=== PATIENT | female | born 1945 | race African-American/Black ===

== ENCOUNTER 2016-06-28 19:00 | Inpatient (IN) | payer MEDICARE ==
[~2016-06-28] VITALS: Ht 172.7 cm; Wt 101.0 kg
[2016-06-28] MEDS ORDERED: TIZA4CAP3 PO (19:23)
[2016-06-28] MEDS ORDERED: ZOFR20TA PO (19:23)
[2016-06-28] MEDS ORDERED: SIMV20TA2 PO (19:23)
[2016-06-28] MEDS ORDERED: PROA1AER INH (19:23)
[2016-06-28] MEDS ORDERED: METR500T10 PO (19:23)
[2016-06-28] MEDS ORDERED: FLUT1LOT (19:23)
[2016-06-28] MEDS ORDERED: CLOTRIMAZOLE ANTI12 TOP (19:23)
[2016-06-28] MEDS ORDERED: IPRASOL4 NEB (19:23)
[2016-06-28] MEDS ORDERED: MONT10TA2 PO (19:23)
[2016-06-28] MEDS ORDERED: SMZ-800T PO (19:23)
[2016-06-28] MEDS ORDERED: LOSA50TA21 PO (19:23)
[2016-06-28] MEDS ORDERED: METOCLOPRAMIDE INJ 10MG/2ML VIAL (J2765) IV ONE (19:45)
[2016-06-28] MEDS ORDERED: NS 1,000 ML IV ONE (19:45)
[2016-06-28] MEDS: MORPHINE 4 MG/ML 1ML SYRINGE IV PRN ×2 (20:00→20:55)
[2016-06-28 20:20] LABS: BASO % 0.4 % (0.0-1.0); EOS # 0.2 K/mm3 (0.0-0.50); EOS % 3.5 % (0.0-3.0); LARGE UNSTAINED CELL # 0.2 K/mm3 (0.0-0.4); LARGE UNSTAINED CELL % 3.9 % (0.0-4.0); LYMPH # 2.4 K/mm3 (1.5-4.5); LYMPH % 33.8 % (24.0-44.0); MEAN CORPUSCULAR HEMOGLOBIN 26.2 pg (27.0-33.0); MEAN CORPUSCULAR HGB CONC 30.5 g/dl (32.0-36.5); MEAN CORPUSCULAR VOLUME 85.9 fl (80.0-96.0); MONO # 0.3 K/mm3 (0.0-0.8); MONO % 5.1 % (0.0-5.0); NEUTROPHILS # 3.3 K/mm3 (1.8-7.7); NEUTROPHILS % 53.3 % (36.0-66.0); PLATELET COUNT, AUTOMATED 194 k/mm3 (150-450); RED CELL DISTRIBUTION WIDTH 13.3 % (11.5-14.5); WHITE BLOOD COUNT 6.3 K/mm3 (4.0-10.0)
[2016-06-28 20:27] LABS: INR 1.06
[2016-06-28 20:51] LABS: ALBUMIN 3.4 GM/DL (3.2-5.2); ALBUMIN/GLOBULIN RATIO 0.72 (1.00-1.93); ALKALINE PHOSPHATASE 54 U/L (45-117); ALT/SGPT 39 U/L (12-78); AMYLASE 70 U/L (25-115); ANION GAP 6 MEQ/L (8-16); AST/SGOT 30 U/L (15-37); BILIRUBIN,DIRECT 0.1 MG/DL (0.0-0.2); BILIRUBIN,TOTAL 0.3 MG/DL (0.2-1.0); BLOOD UREA NITROGEN 8 MG/DL (7-18); CALCIUM LEVEL 9.1 MG/DL (8.8-10.2); CARBON DIOXIDE LEVEL 29 MEQ/L (21-32); CHLORIDE LEVEL 104 MEQ/L (98-107); GLOMERULAR FILTRATION RATE > 60.0 (>39); GLUCOSE, FASTING 104 MG/DL (83-110); POTASSIUM SERUM 4.2 MEQ/L (3.5-5.1); SODIUM LEVEL 139 MEQ/L (136-145); TOTAL PROTEIN 8.1 GM/DL (6.4-8.2)
[2016-06-28] MEDS ORDERED: hydroCHLOROthiazide 12.5 MG CAPSULE PO SCH (21:00)
[2016-06-28] MEDS ORDERED: MORPHINE 2 MG/ML 1ML SYRINGE IV PRN (21:45)
[2016-06-28] MEDS ORDERED: ONDANSETRON 4MG/2ML VIAL (J2405) IV PRN (21:45)
[2016-06-28] MEDS ORDERED: ACETAMINOPHEN TAB 650MG DOSE (2X325MG) PO PRN (21:45)
[2016-06-28] MEDS ORDERED: OMEP20CA3 PO (21:49)
[2016-06-28] MEDS ORDERED: BEANTAB2 PO (21:49)
[2016-06-28] MEDS ORDERED: LACT20EL PO (21:49)
[2016-06-28] MEDS ORDERED: MELA0.02 PO (21:49)
[2016-06-28] MEDS ORDERED: DIPH25CA PO (21:49)
[2016-06-28] MEDS ORDERED: ONDA4TAB6 PO (21:49)
[2016-06-28] MEDS ORDERED: MECL-68 PO (21:49)
[2016-06-28] MEDS ORDERED: ZANA4TAB PO (21:49)
[2016-06-28] MEDS ORDERED: FLUT1SPR2 (21:49)
[2016-06-28] MEDS ORDERED: ALBUTEROL 90 MCG/ACT 8GM HFA INHALER INH PRN (22:30)
[2016-06-28] MEDS ORDERED: MECLIZINE 25 MG TABLET PO PRN (22:30)
[2016-06-28] MEDS ORDERED: tiZANidine 4 MG TAB PO PRN (22:30)
--- NOTE | 2016-06-28 23:02 | HPEPDOC ---
General Date of Admission Jun 28, 2016 at 21:37 Other Providers Scheduled to see [facility] for first time on July 29. Chief Complaint The patient is a 70-year-old female admitted with a reason for visit of Nausea, Vomiting. Source: Patient, Family Exam Limitations: No limitations History of Present Illness 70-year-old female visiting from the [facility] with a past medical history of asthma, hypertension, GERD, and dyslipidemia presented to ER with a chief complaint of epigastric pain associated with nausea and vomiting. Of note, the patient was seen in the [facility] ER on Friday for similar complaints and was discharged home. At that time, a CT scan of the abdomen was done and revealed a low attenuation lesion in the tail of the pancreas with pancreatic neoplasm unable to be ruled out. MRI with contrast of the abdomen was recommended for the patient to follow-up on an outpatient basis. The patient returned to the ER today complaining of worsening symptoms of epigastric pain, cramping in nature, and associated with nausea and vomiting. The patient states that the pain is intermittent and sometimes associated with intake of spicy food. She does state that she has been passing flatus and having normal bowel movements. Of note, the patient does state that she has a known history of gastric ulcer disease diagnosed via EGD a few years ago in [place]. She does take omeprazole for GERD, but only sparingly. The patient does state that she has had a 4 pound weight loss over the last 1 month which has been intentional from diet and exercise, but she denies any other significant weight loss. In addition, the patient denies any fevers, chills, chest pain, shortness of breath, palpitations, or any diarrhea. Home Medications Scheduled (Losartan Potassium/Hydroc 50-12.5 mg) 1 Tab Tab 1 TAB PO QHS (Reported) Metronidazole (Metronidazole) 500 Mg Tab 500 MG PO Q8H (Reported) Montelukast Sodium (Montelukast Sodium) 10 Mg Tab 10 MG PO QHS (Reported) Simvastatin (Simvastatin) 20 Mg Tab 20 MG PO QHS (Reported) Trimethoprim/Sulfamethoxazole (Smz-Tmp Ds 800-160 mg) 1 Tab Tab 1 TAB PO BID ( Reported) Scheduled PRN (Melatonin) 3 Mg Tab 3 MG PO QHS PRN PRN SLEEP (Reported) Albuterol Sulfate (Proair Hfa) 108 Mcg/Act Aer 2 PUFF INH Q4H PRN PRN SHORTNESS OF BREATH (Reported) Ohzpa-X-Pygjtpqgsawan (Beano) 1 Tab Tab 2 TAB PO AC PRN PRN GAS PAIN (Reported) Diphenhydramine HCl (Diphenhydramine HCl) 25 Mg Cap 25 MG PO QHS PRN PRN SLEEP ( Reported) Fluticasone Propionate (Fluticasone Propionate 0.05%) 120 Nursery/16 Gm Naspr 1 SPRAY NA BID PRN PRN NASAL CONGESTION (Reported) PER NOSTRIL Lactulose (Lactulose) 10 Gm/15 Ml Wendy 30 GM PO BID PRN PRN CONSTIPATION ( Reported) Meclizine HCl (Meclizine HCl) 25 Mg Tab 25 MG PO BID PRN PRN DIZZINESS (Reported ) Omeprazole (Omeprazole) 20 Mg Cap 20 MG PO DAILY PRN PRN EPIGASTRIC DISCOMFORT ( Reported) Ondansetron (Ondansetron Odt) 4 Mg Tab 4 MG PO Q8H PRN PRN NAUSEA (Reported) Tizanidine Hydrochloride (Zanaflex) 4 Mg Tab 1 TAB PO BID PRN PRN MUSCLE SPASMS (Reported) Allergies Coded Allergies: Hydrocodone (Verified Allergy, Intermediate, 06/28/16) pain Codeine (Verified Allergy, Unknown, 06/28/16) pain Past Medical History Medical History As noted in HPI. Surgical History Cholecystectomy in 1971, parathyroidectomy, neck cyst removal Family History Significant Family History: No pertinent family hx Social History * Smoker: other (smoked 1 pack per day for 15-20 years, quit 25 years ago) Alcohol: occationally Drugs: denies Review of Symptoms Other systems 10 point review of systems negative unless otherwise specified in HPI. Physical Examination General Exam: Positive: Alert, Cooperative, No Acute Distress ENT Exam: Positive: Atraumatic, Mucous membr. moist/pink Neck Exam: Negative: JVD Chest Exam: Positive: Clear to auscultation, Normal air movement, Negative: Rales, Rhonchi Heart Exam: Positive: Normal S1, Normal S2, Rate Normal Abdomen Exam: Positive: Other (mild tenderness to deep palpation only in the epigastric region, no rigidity, rebound tenderness, or guarding noted), Soft Extremity Exam: Negative: Swelling, Tenderness Psych Exam: Positive: Oriented x 3 Vital Signs Vital Signs Date Time Temp Pulse Resp B/P Pulse Ox O2 Delivery O2 Flow Rate FiO2 06/28/16 21:07 97.8 81 16 149/7 95 06/28/16 19:01 Room Air Laboratory Data Labs 24H Laboratory Tests 2 06/28/16 19:58: Activated Partial Thromboplast Time 29.5, Aspartate Amino Transf (AST/SGOT) 30, Alanine Aminotransferase (ALT/SGPT) 39, Alkaline Phosphatase 54, Total Bilirubin 0.3, Direct Bilirubin 0.1, Albumin 3.4, Albumin/Globulin Ratio 0.72L, Amylase Level 70, Anion Gap 6L, White Blood Count 6.3, Red Blood Count 5.43H, Hemoglobin 14.2, Hematocrit 46.6, Mean Corpuscular Volume 85.9, Mean Corpuscular Hemoglobin 26.2L, Mean Corpuscular Hemoglobin Concent 30.5L, Red Cell Distribution Width 13.3, Platelet Count 194, Neutrophils (%) (Auto) 53.3, Lymphocytes (%) (Auto) 33.8, Monocytes (%) (Auto) 5.1H, Eosinophils (%) (Auto) 3.5H, Basophils (%) (Auto) 0.4, Neutrophils # (Auto) 3.3, Lymphocytes # (Auto) 2.4, Monocytes # (Auto) 0.3, Eosinophils # (Auto) 0.2, Basophils # (Auto) 0.0, Calcium Level 9.1, Glomerular Filtration Rate > 60.0, Large Unclassified Cells # 0.2, Large Unclassified Cells % 3.9, Lipase 228, Prothromb Time International Ratio 1.06, Prothrombin Time 13.9, Total Protein 8.1 CBC/BMP Laboratory Tests 06/28/16 19:58 Red Blood Count 5.43 H, Mean Corpuscular Volume 85.9, Mean Corpuscular Hemoglobin 26.2 L, Mean Corpuscular Hemoglobin Concent 30.5 L, Red Cell Distribution Width 13.3, Neutrophils (%) (Auto) 53.3, Lymphocytes (%) (Auto) 33.8, Monocytes (%) (Auto) 5.1 H, Eosinophils (%) (Auto) 3.5 H, Basophils (%) ( Auto) 0.4, Neutrophils # (Auto) 3.3, Lymphocytes # (Auto) 2.4, Monocytes # (Auto ) 0.3, Eosinophils # (Auto) 0.2, Basophils # (Auto) 0.0 Plan / VTE VTE Prophylaxis Ordered?: Yes Plan Plan Epigastric pain possibly secondary to Gastric/Peptic Ulcer Disease versus Pancreatic mass We will admit the patient to med/surg unit CT scan of the abdomen from [place] reviewed and notable for a low attenuation lesion in the tail of the pancreas MRI of the abdomen with contrast has been ordered for further delineation of said mass Right upper quadrant ultrasound of the liver ordered We will keep the patient nothing by mouth in the meantime IV fluid hydration Laboratory work with no significant findings IV Protonix twice a day, Carafate ordered for treatment of possible underlying gastric/peptic ulcer disease IV Zofran, morphine when necessary Abdominal flat plate pending We will continue to monitor the patient's progress Hypertension, stable Continue losartan, hydrochlorothiazide Dyslipidemia Continue statin Asthma, stable Continue albuterol, Singulair History of dizziness Meclizine when necessary DVT prophylaxis-Lovenox subcutaneously The patient will be admitted under the service of Dr. Koenig, will begin to follow the patient on 06/29/16 at 7 AM. PAT LEON MD Jun 28, 2016 23:02
[2016-06-28 23:55] VITALS: BP 152/84
[2016-06-29] MEDS: PANTOPRAZOLE 40MG INJ (PROTONIX) (C9113) IV SCH ×3 (00:20→20:51)
[2016-06-29] MEDS: SIMVASTATIN 20 MG TAB PO SCH ×2 (00:21→20:51)
[2016-06-29] MEDS: LOSARTAN 50 MG TAB PO SCH ×2 (00:21→20:52)
[2016-06-29] MEDS: diphenhydrAMINE 25 MG CAP PO PRN ×2 (00:21→21:52)
[2016-06-29] MEDS: SUCRALFATE 1 GM TAB PO SCH ×5 (00:22→23:54)
[2016-06-29] MEDS: MONTELUKAST 10 MG TAB PO SCH ×2 (00:22→20:51)
[2016-06-29] MEDS: NS 1,000 ML IV SCH ×4 (00:23→17:37)
[2016-06-29] MEDS ORDERED: METOCLOPRAMIDE INJ 10MG/2ML VIAL (J2765) IV ONE (00:45)
[2016-06-29 05:35] LABS: BASO % 0.2 % (0.0-1.0); EOS # 0.1 K/mm3 (0.0-0.50); EOS % 1.2 % (0.0-3.0); LARGE UNSTAINED CELL # 0.2 K/mm3 (0.0-0.4); LARGE UNSTAINED CELL % 2.7 % (0.0-4.0); LYMPH # 1.5 K/mm3 (1.5-4.5); LYMPH % 20.8 % (24.0-44.0); MEAN CORPUSCULAR HEMOGLOBIN 26.8 pg (27.0-33.0); MEAN CORPUSCULAR HGB CONC 30.8 g/dl (32.0-36.5); MEAN CORPUSCULAR VOLUME 86.9 fl (80.0-96.0); MONO # 0.3 K/mm3 (0.0-0.8); MONO % 4.2 % (0.0-5.0); NEUTROPHILS # 4.5 K/mm3 (1.8-7.7); NEUTROPHILS % 70.9 % (36.0-66.0); PLATELET COUNT, AUTOMATED 181 k/mm3 (150-450); RED CELL DISTRIBUTION WIDTH 13.2 % (11.5-14.5); WHITE BLOOD COUNT 6.4 K/mm3 (4.0-10.0)
[2016-06-29 05:46] LABS: ALBUMIN 2.8 GM/DL (3.2-5.2); ALBUMIN/GLOBULIN RATIO 0.68 (1.00-1.93); ALKALINE PHOSPHATASE 69 U/L (45-117); ALT/SGPT 137 U/L (12-78); ANION GAP 6 MEQ/L (8-16); AST/SGOT 248 U/L (15-37); BILIRUBIN,TOTAL 0.5 MG/DL (0.2-1.0); BLOOD UREA NITROGEN 8 MG/DL (7-18); CALCIUM LEVEL 7.9 MG/DL (8.8-10.2); CARBON DIOXIDE LEVEL 30 MEQ/L (21-32); CHLORIDE LEVEL 106 MEQ/L (98-107); CREATININE FOR GFR 0.98 MG/DL (0.55-1.02); GLOMERULAR FILTRATION RATE > 60.0 (>39); GLUCOSE, FASTING 145 MG/DL (83-110); POTASSIUM SERUM 4.5 MEQ/L (3.5-5.1); SODIUM LEVEL 142 MEQ/L (136-145); TOTAL PROTEIN 6.9 GM/DL (6.4-8.2); TRIGLYCERIDES LEVEL 35 MG/DL (<150)
[2016-06-29 06:00] VITALS: BP 100/54
--- NOTE | 2016-06-29 07:52 | REP ---
The supine abdomen one view: There are no comparisons. The bowel gas pattern is normal. There is a large calcification projecting above the right hip greater trochanter and a large calcification projected over the right gluteal area. These may represent injection granulomas. Skeletal structures and soft tissues otherwise are unremarkable. Impression: Normal bowel gas pattern. Signed by Jose Palomino MD 06/29/2016 07:44 A
--- NOTE | 2016-06-29 09:02 | REP ---
Abdominal right upper quadrant ultrasound for abdominal pain: The the patient reportedly has a cholecystectomy. The hepatic parenchyma is homogeneous and unremarkable. There is no intrahepatic or extrahepatic biliary duct dilatation, the common duct measures 2.9 mm in diameter. The pancreas is obscured by bowel. The right kidney is normal size measuring 10.7 cm craniocaudad length. There is a 2.7 cm right renal upper pole cyst. There is no hydronephrosis, calculus or mass. Impression: Right renal upper pole cyst. Cholecystectomy. Otherwise, negative abdominal right upper quadrant ultrasound. Signed by Jose Palomino MD 06/29/2016 08:53 A
[2016-06-29] MEDS: ENOXAPARIN 40 MG/0.4 ML SYRINGE (J1650) SC SCH (09:38)
--- NOTE | 2016-06-29 09:51 | IPNPDOC ---
Subjective Date Seen The patient was seen on 06/29/16. Subjective Chief Complaint/HPI The patient is a 70-year-old female admitted with a reason for visit of Nausea, Vomiting. Constitutional: Denies: Chills Eyes: Denies: Conjunctivae inflammation, Vision change Pulmonary: Denies: Cough, Dyspnea Cardiovascular: Denies: Chest Pain, Palpitations Gastrointestinal: Denies: Abdominal Pain, Constipation, Diarrhea, Nausea, Vomiting Neurological: Denies: Weakness Psych: Reports: Mood Normal Objective Physical Examination General Exam: Positive: Alert, Cooperative, No Acute Distress ENT Exam: Positive: Atraumatic, Mucous membr. moist/pink, Nares Patent Neck Exam: Negative: JVD Chest Exam: Positive: Clear to auscultation, Normal air movement, Negative: Rales, Rhonchi Heart Exam: Positive: Normal S1, Normal S2, Rate Normal Abdomen Exam: Positive: Other (unchanged mild tenderness to deep palpation only in the epigastric region, no rigidity, rebound tenderness, or guarding noted), Soft Extremity Exam: Negative: Edema, Swelling, Tenderness Psych Exam: Positive: Oriented x 3 Assessment /Plan Problems (1) Epigastric abdominal pain Status: Acute Problem Text: improved from one day prior morphine pain mgmt continue to monitor MRI ab. pending liver u/s negative (2) Pancreatic abnormality Status: Acute Response to Treatment: Stable Problem Text: Liver u/s negative, right renal cyst MRI abdomen pending if mass found to be solid on MRI, will need transfer to [place] for further care, for potential endoscopic u/x with biopsy if mass is liquid will medically manage will check ca19-9, beta microglobulin and LDH levels (3) Nausea & vomiting Status: Acute Response to Treatment: Stable Problem Text: Reglan therapy pt states she is not as nauseas as one day prior on presentation continue to monitor (4) HTN (hypertension) Status: Chronic Response to Treatment: Stable Problem Text: stable 100/54 c/w HCTZ & losartan medical therapy (5) Dyslipidemia Status: Chronic Response to Treatment: Stable Problem Text: c/w statin medical therapy (6) DVT prophylaxis Status: Acute Response to Treatment: Stable Problem Text: lovenox medical therapy Plan/VTE VTE Prophylaxis Ordered?: Yes VS, I&O, 24H, Fishbone Vital Signs/I&O Vital Signs Date Time Temp Pulse Resp B/P Pulse Ox O2 Delivery O2 Flow Rate FiO2 06/29/16 06:00 98.3 67 106 100/54 97 Room Air I&O- Last 24 Hours up to 6 AM 06/29/16 06:00 Intake Total 900 ml Output Total 0 ml Balance 900 ml Laboratory Data 24H LABS Laboratory Tests 2 06/28/16 19:58: Activated Partial Thromboplast Time 29.5, Aspartate Amino Transf (AST/SGOT) 30, Alanine Aminotransferase (ALT/SGPT) 39, Alkaline Phosphatase 54, Total Bilirubin 0.3, Direct Bilirubin 0.1, Albumin 3.4, Albumin/Globulin Ratio 0.72L, Amylase Level 70, Anion Gap 6L, White Blood Count 6.3, Red Blood Count 5.43H, Hemoglobin 14.2, Hematocrit 46.6, Mean Corpuscular Volume 85.9, Mean Corpuscular Hemoglobin 26.2L, Mean Corpuscular Hemoglobin Concent 30.5L, Red Cell Distribution Width 13.3, Platelet Count 194, Neutrophils (%) (Auto) 53.3, Lymphocytes (%) (Auto) 33.8, Monocytes (%) (Auto) 5.1H, Eosinophils (%) (Auto) 3.5H, Basophils (%) (Auto) 0.4, Neutrophils # (Auto) 3.3, Lymphocytes # (Auto) 2.4, Monocytes # (Auto) 0.3, Eosinophils # (Auto) 0.2, Basophils # (Auto) 0.0, Calcium Level 9.1, Glomerular Filtration Rate > 60.0, Large Unclassified Cells # 0.2, Large Unclassified Cells % 3.9, Lipase 228, Prothromb Time International Ratio 1.06, Prothrombin Time 13.9, Total Protein 8.1 06/29/16 04:52: Aspartate Amino Transf (AST/SGOT) 248H, Alanine Aminotransferase (ALT/SGPT) 137H , Alkaline Phosphatase 69, Total Bilirubin 0.5#, Albumin 2.8L, Albumin/Globulin Ratio 0.68L, Anion Gap 6L, White Blood Count 6.4, Red Blood Count 4.63, Hemoglobin 12.4, Hematocrit 40.2, Mean Corpuscular Volume 86.9, Mean Corpuscular Hemoglobin 26.8L, Mean Corpuscular Hemoglobin Concent 30.8L, Red Cell Distribution Width 13.2, Platelet Count 181, Neutrophils (%) (Auto) 70.9H, Lymphocytes (%) (Auto) 20.8L, Monocytes (%) (Auto) 4.2, Eosinophils (%) (Auto) 1.2, Basophils (%) (Auto) 0.2, Neutrophils # (Auto) 4.5, Lymphocytes # (Auto) 1.5, Monocytes # (Auto) 0.3, Eosinophils # (Auto) 0.1, Basophils # (Auto) 0.0, Calcium Level 7.9L, Glomerular Filtration Rate > 60.0, Large Unclassified Cells # 0.2, Large Unclassified Cells % 2.7, Lipase 496H, Total Protein 6.9, Blood Urea Nitrogen 8, Creatinine 0.98, Sodium Level 142, Potassium Level 4.5, Chloride Level 106, Carbon Dioxide Level 30, Triglycerides Level 35 CBC/BMP Laboratory Tests 06/28/16 19:58 Red Blood Count 5.43 H, Mean Corpuscular Volume 85.9, Mean Corpuscular Hemoglobin 26.2 L, Mean Corpuscular Hemoglobin Concent 30.5 L, Red Cell Distribution Width 13.3, Neutrophils (%) (Auto) 53.3, Lymphocytes (%) (Auto) 33.8, Monocytes (%) (Auto) 5.1 H, Eosinophils (%) (Auto) 3.5 H, Basophils (%) ( Auto) 0.4, Neutrophils # (Auto) 3.3, Lymphocytes # (Auto) 2.4, Monocytes # (Auto ) 0.3, Eosinophils # (Auto) 0.2, Basophils # (Auto) 0.0 06/29/16 04:52 Red Blood Count 4.63, Mean Corpuscular Volume 86.9, Mean Corpuscular Hemoglobin 26.8 L, Mean Corpuscular Hemoglobin Concent 30.8 L, Red Cell Distribution Width 13.2, Neutrophils (%) (Auto) 70.9 H, Lymphocytes (%) (Auto) 20.8 L, Monocytes (% ) (Auto) 4.2, Eosinophils (%) (Auto) 1.2, Basophils (%) (Auto) 0.2, Neutrophils # (Auto) 4.5, Lymphocytes # (Auto) 1.5, Monocytes # (Auto) 0.3, Eosinophils # ( Auto) 0.1, Basophils # (Auto) 0.0, Calcium Level 7.9 L, Aspartate Amino Transf ( AST/SGOT) 248 H, Alanine Aminotransferase (ALT/SGPT) 137 H, Alkaline Phosphatase 69, Total Bilirubin 0.5 #, Triglycerides Level 35, Total Protein 6.9 , Albumin 2.8 L GME ATTESTATION GME ATTESTATION My preceptor for this patient encounter was physically present in the building during the encounter and was fully available. As needed, all aspects of the patient interview, examination, medical decision making process, and medical care plan development were reviewed and approved by the preceptor. Preceptor is aware and concurs with the plan as stated in the body of this note and will attest to such by his/her cosignature. GILBERTO HOFFMANN DO Jun 29, 2016 09:51
--- NOTE | 2016-06-29 13:20 | REPUSA ---
CLINICAL HISTORY: Pancreatic mass seen on an outside CT. TECHNIQUE: MRI of the abdomen was performed utilizing multiple sequences in axial, coronal and sagit jessi planes without and with IV contrast material. COMMENTS: CT images or report are not available for review. The liver demonstrates normal signal intensity on all sequences without evidence of mass or defect. There is no intra or extrahepatic biliary ductal dilatation. The spleen is normal. Gallbladder is n ot identified. Please correlate with surgical status. There is evidence of a heterogeneously enhanc ing mass in the region of pancreatic tail measuring approximately 3 x 1.5 cm[address] correlate with [address] of the abdomen. There is no evidence of pancreatic duct dilatation. No evidence of lymphadenopat hy or metastatic spread. There is no evidence of adrenal mass. The kidneys are normal in size, shape and configuration. Ther e is no evidence of renal mass. There is no hydroureter or hydronephrosis. 17 mm super cyst present in the superior pole of the right kidney. Several additional tiny cortical cysts are present within both kidneys. Large amount of fecal material is seen in the visualized colon. Internal note is mad e of a wall thickening involving loops of duodenum, loops of jejunum compatible with enteritis. There is no wall thickening within the visualized bowel. No evidence for small or large bowel obstru ction. There is no evidence of abnormal ascites or lymphadenopathy. Images of the lung bases reveal no evidence for pleural effusion. IMPRESSION: 1. 17 mm super cyst present in the superior pole of the right kidney. Several additional tiny corti jeremy cysts are present within both kidneys. 2. Large amount of fecal material is seen in the visualized colon. 3. Wall thickening involving loops of duodenum, loops of jejunum compatible with enteritis. 2. Heterogeneously enhancing mass in the region of pancreatic tail measuring approximately 3 x 1.5 c m. Direct comparison to CT of the abdomen is recommended. Thank you for your kind referral of this patient. We appreciate the opportunity to participate in thi s patient's care.
[2016-06-29 14:00] VITALS: BP 151/72
[2016-06-29] MEDS: PREPARATION H OINTMENT (HEMORRHOID) TOP PRN (21:53)
[2016-06-29 22:00] VITALS: BP 144/75
[2016-06-30] MEDS: SUCRALFATE 1 GM TAB PO SCH ×4 (05:13→23:18)
[2016-06-30] MEDS: NS 1,000 ML IV SCH ×2 (05:13→06:57)
[2016-06-30] MEDS ORDERED: PROT40IN4 PO (05:29)
[2016-06-30] MEDS ORDERED: PROT40IN4 IV (05:29)
[2016-06-30] MEDS ORDERED: SUCR1TA PO (05:29)
[2016-06-30] MEDS ORDERED: LOVE1INJ SC (05:29)
[2016-06-30] MEDS ORDERED: MORP2SY IV (05:29)
[2016-06-30 05:39] LABS: BASO % 0.2 % (0.0-1.0); EOS # 0.4 K/mm3 (0.0-0.50); EOS % 6.2 % (0.0-3.0); LARGE UNSTAINED CELL # 0.2 K/mm3 (0.0-0.4); LYMPH # 2.2 K/mm3 (1.5-4.5); LYMPH % 38.9 % (24.0-44.0); MEAN CORPUSCULAR HEMOGLOBIN 28.2 pg (27.0-33.0); MEAN CORPUSCULAR HGB CONC 32.6 g/dl (32.0-36.5); MEAN CORPUSCULAR VOLUME 86.3 fl (80.0-96.0); MONO # 0.3 K/mm3 (0.0-0.8); MONO % 5.8 % (0.0-5.0); NEUTROPHILS # 2.5 K/mm3 (1.8-7.7); NEUTROPHILS % 44.9 % (36.0-66.0); PLATELET COUNT, AUTOMATED 200 k/mm3 (150-450); RED CELL DISTRIBUTION WIDTH 13.3 % (11.5-14.5); WHITE BLOOD COUNT 5.7 K/mm3 (4.0-10.0)
[2016-06-30 05:55] LABS: ALBUMIN 2.7 GM/DL (3.2-5.2); ALBUMIN/GLOBULIN RATIO 0.61 (1.00-1.93); ALKALINE PHOSPHATASE 58 U/L (45-117); ALT/SGPT 86 U/L (12-78); ANION GAP 8 MEQ/L (8-16); AST/SGOT 76 U/L (15-37); BILIRUBIN,TOTAL 0.7 MG/DL (0.2-1.0); BLOOD UREA NITROGEN 7 MG/DL (7-18); CALCIUM LEVEL 7.7 MG/DL (8.8-10.2); CARBON DIOXIDE LEVEL 26 MEQ/L (21-32); CHLORIDE LEVEL 108 MEQ/L (98-107); CREATININE FOR GFR 0.69 MG/DL (0.55-1.02); GLOMERULAR FILTRATION RATE > 60.0 (>39); GLUCOSE, FASTING 93 MG/DL (83-110); POTASSIUM SERUM 3.6 MEQ/L (3.5-5.1); SODIUM LEVEL 142 MEQ/L (136-145); TOTAL PROTEIN 7.1 GM/DL (6.4-8.2)
[2016-06-30 06:00] VITALS: BP_SYST 146; BP_SYST 172; BP_DIAS 72; BP_DIAS 74
[2016-06-30] MEDS: CIPROFLOXACIN 500 MG TAB PO SCH ×2 (08:39→18:34)
[2016-06-30] MEDS: metroNIDAZOLE (FLAGYL) 500 MG TAB PO SCH ×3 (08:39→21:11)
[2016-06-30] MEDS: ENOXAPARIN 40 MG/0.4 ML SYRINGE (J1650) SC SCH (08:39)
[2016-06-30] MEDS: PANTOPRAZOLE 40MG INJ (PROTONIX) (C9113) IV SCH ×2 (08:41→21:10)
--- NOTE | 2016-06-30 10:28 | DSES ---
DATE OF ADMISSION: 06/28/2016 DATE OF DISCHARGE: Awaiting bed from [facility] 06/30/2016 CONSULTANTS: None. PROCEDURES: None. PRIMARY DISCHARGE DIAGNOSES: 1. Pancreatic mass. 2. Hypertension. 3. Dyslipidemia. DISCHARGED MEDICATIONS: - losartan 50 mg at bedtime - Simvastatin 20 mg at bedtime - Singular 10 mg at bedtime - Zofran 4 mg IV every 6 as needed for nausea or vomiting - Morphine 2 mg IV every 2 as needed for severe pain - Tylenol 650 every 4 for pain and fever - Protonix 40 mg IV twice a day - tizanidine 4 mg twice a day as needed for muscle spasms - meclizine 25 mg twice a day for dizziness - Flonase twice a day as needed for nasal dryness - Benadryl 25 at bedtime as needed for sleep - Proventil 2 puffs every 4 as needed for shortness of breath - Carafate 1 gram by mouth every 6 hourly - Lovenox 40 mg subcutaneous daily - Preparation H daily four times a day as needed for hemorrhoids - ciprofloxacin 500 mg twice a day - Flagyl 500 mg every 8 hourly HOSPITAL COURSE: This is a 70-year-old female visiting from [place] with a daughter of Moisés Johnson with a history of asthma, hypertension, reflux, dyslipidemia who presented to [facility] with epigastric, abdominal pain, nausea and vomiting on Friday and was discharged on the same day after CT abdomen shows low attentuation lesion in the tail of the pancreas with pancreatic neoplasm possibility. Patient was instructed to followup as an outpatient basis to obtain and MRI. Patient returned to [facility] due to worsening epigastric pain, cramping, history with no radiation, nausea, vomiting, fevers, or chills which was intermittent after eating wings. Patient was passing flatus and was having normal bowel movements. She had a history of gastric ulcer diagnosed by EGD in [place] and take omeprazole for reflux. She has had a 4 pound weight loss over the past month which was intentional from diet and exercise. No other review of systems. She was transferred to [facility] for MRI of the abdomen. No manager concrete was available on consult for Friday and Friday. MRI of the abdomen shows a pancreatic mass at the tail of the pancreas. Liver ultrasound shows the right renal upper pole with cyst, otherwise negative right upper quadrant ultrasound. Patient's liver function tests were slightly elevated with AST of 248, ALT 137, total bilirubin was normal at 0.5, direct bilirubin 0.1, alkaline phosphatase was normal at 58, LDH was elevated at 370, lipase levels 496, CA 19-9 was still pending, beta-2 microglobulin is pending. Patient was kept nothing by mouth with IV fluids with resolution of the abdominal pain. She was then advanced to clear liquid diet and appeared to be tolerating this well. MRI of the abdomen shows 3 x 1.5 cm enhancing mass pancreatic tail. Patient requests transfer to [place] for further pelvic ultrasound and gastrointestinal (GI) consultation was made, still awaiting a bed. Current physical examination, temperature 98.1, pulse 77, respiratory rate 18, blood pressure 146/74, 100% on room air. Generally, awake, alert, oriented times three. No jaundice or icterus. No jugular venous distention or cervical lymphadenopathy. Dry mucous membranes. LUNGS: Clear to auscultation; no wheezing, rales, or rhonchi. HEART: S1, S2, sinus rhythm. ABDOMEN: Soft, slightly tender left upper quadrant. No rebound or guarding. Positive bowel sounds in all four quadrants. EXTREMITIES: Have no pitting edema. LABORATORY DATA: White count 5.7, hemoglobin 12.9, hematocrit 39.5, platelet count 200. Sodium 142, potassium 3.6, chloride 108, bicarbonate 26, BUN 7, creatinine 0.69, glucose of 93, calcium 7.7, total bilirubin 0.7, AST 76, ALT 86, alkaline phosphatase 58 , LDH 370, total protein 7.1, albumin 2.7, beta-2 microglobulin pending. Triglycerides 35, amylase 70, lipase 184, CA 19-9 pending. IMAGING STUDIES: Liver ultrasound - right renal upper pole cyst cholecystectomy, otherwise negative abdominal right upper quadrant ultrasound. MRI of the abdomen with contrast shows a 17 mm super cyst present at the superior pole of the right kidney several additional tiny cortical cysts are present in both kidneys. A large amount of fecal material is seen in the visualized colon while thickening involving the duodenal loops of jejunum compatible with enteritis. Heterogeneously enhancing mass in the region of the pancreatic tail measuring approximately 3 x 1.5 cm. MTDD
[2016-06-30] MEDS: PREPARATION H OINTMENT (HEMORRHOID) TOP PRN ×2 (10:44→23:10)
[2016-06-30] MEDS ORDERED: PERCOCET 5MG/325MG TAB PO PRN ×2 (11:00)
[2016-06-30 14:00] VITALS: BP 148/84
[2016-06-30] MEDS: LOSARTAN 50 MG TAB PO SCH (21:11)
[2016-06-30] MEDS: MONTELUKAST 10 MG TAB PO SCH (21:11)
[2016-06-30] MEDS: SIMVASTATIN 20 MG TAB PO SCH (21:11)
[2016-06-30] MEDS: diphenhydrAMINE 25 MG CAP PO PRN (21:15)
[2016-06-30 22:00] VITALS: BP 160/98
[2016-06-30] MEDS: FLUTICASONE PROP 0.05% NASAL SPRAY 16 GM (FLONASE) PRN (23:18)
[2016-07-01] MEDS: metroNIDAZOLE (FLAGYL) 500 MG TAB PO SCH ×3 (05:48→21:45)
[2016-07-01] MEDS: CIPROFLOXACIN 500 MG TAB PO SCH ×2 (05:48→17:58)
[2016-07-01] MEDS: SUCRALFATE 1 GM TAB PO SCH ×4 (05:48→23:50)
[2016-07-01 06:00] VITALS: BP 160/85
[2016-07-01 06:19] LABS: BASO % 0.5 % (0.0-1.0); EOS # 0.3 K/mm3 (0.0-0.50); EOS % 5.5 % (0.0-3.0); LARGE UNSTAINED CELL # 0.2 K/mm3 (0.0-0.4); LARGE UNSTAINED CELL % 3.3 % (0.0-4.0); LYMPH % 33.1 % (24.0-44.0); MEAN CORPUSCULAR HEMOGLOBIN 27.2 pg (27.0-33.0); MEAN CORPUSCULAR HGB CONC 31.9 g/dl (32.0-36.5); MEAN CORPUSCULAR VOLUME 85.3 fl (80.0-96.0); MONO # 0.3 K/mm3 (0.0-0.8); MONO % 5.4 % (0.0-5.0); NEUTROPHILS # 2.9 K/mm3 (1.8-7.7); NEUTROPHILS % 52.2 % (36.0-66.0); PLATELET COUNT, AUTOMATED 223 k/mm3 (150-450); RED CELL DISTRIBUTION WIDTH 13.2 % (11.5-14.5); WHITE BLOOD COUNT 5.6 K/mm3 (4.0-10.0)
[2016-07-01 06:34] LABS: ALBUMIN 3.1 GM/DL (3.2-5.2); ALBUMIN/GLOBULIN RATIO 0.65 (1.00-1.93); ALKALINE PHOSPHATASE 61 U/L (45-117); ALT/SGPT 68 U/L (12-78); ANION GAP 7 MEQ/L (8-16); AST/SGOT 40 U/L (15-37); BILIRUBIN,TOTAL 0.7 MG/DL (0.2-1.0); BLOOD UREA NITROGEN 5 MG/DL (7-18); CALCIUM LEVEL 8.3 MG/DL (8.8-10.2); CARBON DIOXIDE LEVEL 27 MEQ/L (21-32); CHLORIDE LEVEL 104 MEQ/L (98-107); CREATININE FOR GFR 0.72 MG/DL (0.55-1.02); GLOMERULAR FILTRATION RATE > 60.0 (>39); GLUCOSE, FASTING 133 MG/DL (83-110); POTASSIUM SERUM 3.5 MEQ/L (3.5-5.1); SODIUM LEVEL 138 MEQ/L (136-145); TOTAL PROTEIN 7.9 GM/DL (6.4-8.2)
[2016-07-01] MEDS: ENOXAPARIN 40 MG/0.4 ML SYRINGE (J1650) SC SCH (08:31)
[2016-07-01] MEDS: PANTOPRAZOLE 40MG INJ (PROTONIX) (C9113) IV SCH ×2 (08:31→21:46)
[2016-07-01] MEDS: PREPARATION H OINTMENT (HEMORRHOID) TOP PRN ×2 (08:43→21:52)
[2016-07-01 14:00] VITALS: BP 144/94
[2016-07-01] MEDS ORDERED: CIPR500T89 PO (14:26)
[2016-07-01] MEDS ORDERED: FLAG500T PO (14:27)
[2016-07-01] MEDS ORDERED: amLODIPine 5 MG TAB PO ONE (14:30)
--- NOTE | 2016-07-01 14:51 | IPN ---
DATE: 07/01/2016 The patient is seen and examined at the bedside. Chart has been reviewed. She currently states that she is tolerating her diet well. She denies any nausea or vomiting. The patient has no fever or chills. Temperature 98.2, pulse 79, respiratory rate 17, blood pressure 160/85, 94% on room air. GENERAL: The patient is anicteric. No jaundice. No respiratory distress. No cervical lymphadenopathy. Moist mucous membranes. LUNGS: Clear to auscultation. No wheezing, rales or rhonchi. HEART: S1, S2. Sinus rhythm. ABDOMEN: Soft, slightly tender in left upper quadrant. No rebound or guarding. Positive bowel sounds. EXTREMITIES: No pitting edema. White count is 5.6, hemoglobin 14, hematocrit 43, platelet count 223. Sodium 138, potassium 2.5, chloride 104, bicarbonate 27, BUN 7, creatinine 0.72, glucose of 133. Total bilirubin 0.7, AST 40, ALT 68, alkaline phosphatase 61, total protein 7.9, albumin 3.1, lipase 178. ASSESSMENT AND PLAN: This is an 80-year-old female visiting from [place] with a history of asthma, hypertension, reflux, dyslipidemia, prior history of pancreatitis in 2016, presented to [facility] emergency room with epigastric abdominal pain, nausea, vomiting on Friday and was discharged on the same day from the emergency room with CT showing low attenuation lesion in the tail of the pancreas with pancreatic neoplasm possibility. The patient was instructed to followup as an outpatient to obtain a MRI. The patient returned to [facility] emergency room due to worsening abdominal pain, cramping with no radiation, nausea, vomiting, fevers or chills after eating wings. She was passing flatus and had a normal bowel movement. The patient admits to a 4 pound weight loss over the past month, which was intentional from diet and exercise, had a prior esophagogastroduodenoscopy (EGD) with gastric ulcer in [place]. The patient was transferred to [facility] for further evaluation. MRI of the abdomen performed showed pancreatic mass at the tail of the pancreas measuring 3 x 1.5 cm. She was kept nothing by mouth and advanced on diet from clears with IV fluid and tolerated this well. Advanced to a regular diet. During the hospital stay, the patient's CA 19-9 was sent, no report available. We are awaiting a bed at [facility], in [place] has also been called and stated that there is still a wait list in that facility. CURRENT ISSUES: 1. Pancreatic mass. Tolerating diet well. Advance as tolerated. Continue fluids if the patient develops nausea or vomiting. We are awaiting bed availability at [facility], as well as [facility] in [place]. The patient has been placed on a wait list at both facilities. 2. Hypertension. On losartan. Uncontrolled. We will increase dose. 3. Dyslipidemia. On statin. 4. Asthma. On albuterol and Singulair. 5. Chronic dizziness. On meclizine as needed.
[2016-07-01] MEDS ORDERED: MIRALAX *UNIT DOSE* 17GM PACKET PO PRN (20:00)
[2016-07-01] MEDS: MONTELUKAST 10 MG TAB PO SCH (21:45)
[2016-07-01] MEDS: LOSARTAN 50 MG TAB PO SCH (21:45)
[2016-07-01] MEDS: SIMVASTATIN 20 MG TAB PO SCH (21:45)
[2016-07-01] MEDS: SENOKOT S TAB PO SCH (21:45)
[2016-07-01] MEDS: FLUTICASONE PROP 0.05% NASAL SPRAY 16 GM (FLONASE) PRN (21:52)
[2016-07-01 22:00] VITALS: BP 140/80
[2016-07-01] MEDS: diphenhydrAMINE 25 MG CAP PO PRN (22:25)
[2016-07-02] MEDS: SUCRALFATE 1 GM TAB PO SCH ×2 (05:16→11:50)
[2016-07-02] MEDS: metroNIDAZOLE (FLAGYL) 500 MG TAB PO SCH ×2 (05:16→14:21)
[2016-07-02] MEDS: CIPROFLOXACIN 500 MG TAB PO SCH (05:16)
[2016-07-02 06:00] VITALS: BP 152/85
[2016-07-02 07:05] LABS: BASO % 0.6 % (0.0-1.0); EOS # 0.2 K/mm3 (0.0-0.50); EOS % 4.1 % (0.0-3.0); LARGE UNSTAINED CELL # 0.2 K/mm3 (0.0-0.4); LARGE UNSTAINED CELL % 3.4 % (0.0-4.0); LYMPH # 2.1 K/mm3 (1.5-4.5); LYMPH % 31.5 % (24.0-44.0); MEAN CORPUSCULAR HEMOGLOBIN 26.8 pg (27.0-33.0); MEAN CORPUSCULAR HGB CONC 31.2 g/dl (32.0-36.5); MONO # 0.3 K/mm3 (0.0-0.8); MONO % 4.8 % (0.0-5.0); NEUTROPHILS # 3.4 K/mm3 (1.8-7.7); NEUTROPHILS % 55.5 % (36.0-66.0); PLATELET COUNT, AUTOMATED 196 k/mm3 (150-450); RED CELL DISTRIBUTION WIDTH 13.1 % (11.5-14.5)
[2016-07-02 07:19] LABS: ALBUMIN 3.1 GM/DL (3.2-5.2); ALBUMIN/GLOBULIN RATIO 0.63 (1.00-1.93); ALKALINE PHOSPHATASE 65 U/L (45-117); ALT/SGPT 58 U/L (12-78); ANION GAP 8 MEQ/L (8-16); AST/SGOT 34 U/L (15-37); BILIRUBIN,TOTAL 0.5 MG/DL (0.2-1.0); BLOOD UREA NITROGEN 6 MG/DL (7-18); CALCIUM LEVEL 8.4 MG/DL (8.8-10.2); CARBON DIOXIDE LEVEL 27 MEQ/L (21-32); CHLORIDE LEVEL 104 MEQ/L (98-107); CREATININE FOR GFR 0.86 MG/DL (0.55-1.02); GLOMERULAR FILTRATION RATE > 60.0 (>39); GLUCOSE, FASTING 161 MG/DL (83-110); POTASSIUM SERUM 3.4 MEQ/L (3.5-5.1); SODIUM LEVEL 139 MEQ/L (136-145)
[2016-07-02 08:54] LABS: MAGNESIUM LEVEL 1.6 MG/DL (1.8-2.4)
[2016-07-02] MEDS ORDERED: POTASSIUM CHLORIDE 10 MEQ SR TABLET PO ONE (09:00)
[2016-07-02] MEDS ORDERED: amLODIPine 5 MG TAB PO SCH (09:00)
[2016-07-02] MEDS ORDERED: MAG SULF 1GM/100ML (MAG RUN) 1 GM in APPROPRIATE DILUENT 1 EA IV ONE (09:30)
[2016-07-02] MEDS: PANTOPRAZOLE 40MG INJ (PROTONIX) (C9113) IV SCH (09:38)
[2016-07-02] MEDS: ENOXAPARIN 40 MG/0.4 ML SYRINGE (J1650) SC SCH (09:39)
[2016-07-02 09:40] VITALS: BP 152/85
[2016-07-02] MEDS: SENOKOT S TAB PO SCH (09:40)
[2016-07-02] MEDS ORDERED: POTASSIUM CHLORIDE 10 MEQ SR TABLET As Ordered ONE (10:37)
[2016-07-02 14:00] VITALS: BP 133/59
--- NOTE | 2016-07-02 17:47 | DSES ---
DATE OF ADMISSION: 06/28/2016 DATE OF TRANSFER/DISCHARGE: 07/02/2016 PRIMARY CARE PROVIDER: Patient is scheduled to see different provider at [facility] on 07/29/2016, originally sees doctors in [place]. FINAL DIAGNOSES: 1. Pancreatic tail mass. 2. Hypertension. 3. Dyslipidemia. 4. Asthma. 5. Lightheadedness. 6. Nausea and vomiting. 7. Hypokalemia. PROCEDURES: None. HISTORY OF PRESENT ILLNESS: This is a 70-year-old female patient with underlying medical history of obesity, hypotension, gastroesophageal reflux disease (GERD), and dyslipidemia who presented to the emergency room (ER) with chief complaint of epigastric pain associated with nausea and vomiting. Patient has recently been evaluated at [facility] Emergency Department prior for similar complaints and was discharged home. At the time, CT scan of the abdomen was done which revealed attenuation lesion at the tail of pancreas with pancreatic neoplasm unable to be ruled out. MRI with contrast of the abdomen was recommended for followup as outpatient basis. Patient returned to the emergency room complaining of worsening symptoms, epigastric pain with cramps associated with nausea and vomiting, worsened with food. Subsequently, patient was admitted to the hospital. MRI of the abdomen was done showing pancreatic tail mass. HOSPITAL COURSE: MRI of the abdomen was done showing pancreatic tail mass. Lipase was appreciated, initially mildly elevated. IV fluids were given. Electrolytes were supplemented. Patient initially was on a clear liquid diet. We have attempted to contact [facility] as well as [facility] for potential transfer. Patient was on the wait list for two days already and subsequently we also contacted [facility] which does not offer EUS and also contacted [facility] which also does not offer EUS. Subsequently, [place] was contacted and patient was accepted at [facility] for EUS and ERCP by gastroenterology. Case discussed with in-house flat clothier, Dr. Tran. [facility] does not offer EUS with biopsy. Accepting hospitalist is Dr. Collier at [facility]. INPATIENT MEDICATIONS: - albuterol inhaler as needed - Norvasc 5 mg by mouth daily - Cipro 500 mg by mouth twice a day - Benadryl 25 mg by mouth as needed - Senokot-S one tablet by mouth twice a day - Lovenox 40 mg subcutaneous daily - Flovent intranasal twice a day - losartan 50 mg by mouth at bedtime - meclizine 25 mg by mouth twice a day as needed - Flagyl 500 mg by mouth every eight hours - Singulair 10 mg by mouth at bedtime - morphine 2 mg IV every two hours as needed - Protonix 40 mg IV twice a day - potassium chloride supplementation 40 mEq given today - MiraLAX one packet by mouth daily as needed - Zocor 20 mg by mouth at bedtime - Carafate 1 gram by mouth every six hours as needed VITAL SIGNS: Temperature 98.1, pulse 95, respiratory rate 16, blood pressure 133/59, pulse oximetry 97% on room air. LABORATORY DATA: WBC 6, hemoglobin and hematocrit 14.1/45.2, platelets 196. Chemistry: Sodium 139, potassium 3.4, chloride 105, bicarbonate 27, BUN 6, creatinine 0.86. DISCHARGE INSTRUCTIONS: Patient is to be transferred to [facility] for EUS and followup pathology as outpatient for further recommendations and followup.
== END 2016-07-02 18:02 | disposition short-term general hospital (02) | DRG 440 ==
LOC: M ED 19:44 → M ED INP 21:37 → M MSPAV 23:54
PROVIDERS: ADMIT Internal Medicine; ATTEND Hospitalist
DX: K86.9 Disease of pancreas, unspecified (principal); I10 Essential (primary) hypertension; E78.5 Hyperlipidemia, unspecified; J45.909 Unspecified asthma, uncomplicated; R42 Dizziness and giddiness; E87.6 Hypokalemia; K21.9 Gastro-esophageal reflux disease without esophagitis; E66.9 Obesity, unspecified; Z79.899 Other long term (current) drug therapy; Z88.5 Allergy status to narcotic agent; Z90.49 Acquired absence of other specified parts of digestive tract; Z87.891 Personal history of nicotine dependence